=== PATIENT | female | born 1985 | race Caucasian/White ===

== ENCOUNTER 2020-07-27 10:58 | Outpatient (RCR) | payer OTHER, SELFPAY ==
[2020-07-27 12:34] LABS: Hematocrit 36.6 % (37.0-47.0); Hemoglobin 12.4 g/dL (12.0-15.0)
[2020-07-27 12:47] LABS: Glucose 1 Hour PP 50gm Dose 91 mg/dL
[2020-07-27 13:28] LABS: HIV 1/2 Ab P24 Ag Result Negative (Negative)
[2020-07-30 08:22] LABS: Rapid Plasma Reagin Non-Reactive (NonReactive)
[2020-07-30] MEDS: RHO(D) IMMUNE GLOBULIN 300 MCG SYRINGE IM (10:06)
== END 2020-10-25 23:59 | disposition home or self-care (01) ==
LOC: ANHLAB 10:58
PROVIDERS: Visit Provider Obstetrics & Gynecology
DX: Z29.13 Encounter for prophylactic Rho(D) immune globulin (principal); Z11.4 Encounter for screening for human immunodeficiency virus [HIV]; O36.0130 Maternal care for anti-D [Rh] antibodies, third trimester, not applicable or unspecified; Z3A.00 Weeks of gestation of pregnancy not specified
CPT/HCPCS: 36415; 82947; 85014; 85018; 85461; 86592; 86703; 90384; 96372; G0432; J2790

== ENCOUNTER 2020-08-20 14:34 | Outpatient (CLI) | payer OTHER, SELFPAY ==
[2020-08-20 15:18] VITALS: BP 121/80; PULSE 92
--- NOTE | 2020-08-20 15:28 | PC.NURSE ---
Tatyana Luna notified of negative Nitrazine and negative ferning. Ok to dc home. Dr Brooks will read US tomorrow and call with further instructions.
== END 2020-08-20 15:20 | disposition home or self-care (01) ==
LOC: ANHOBOP 14:41 → ANHOBPP 15:28
PROVIDERS: Visit Provider Obstetrics & Gynecology
DX: O41.8X90 Other specified disorders of amniotic fluid and membranes, unspecified trimester, not applicable or unspecified (principal); Z3A.00 Weeks of gestation of pregnancy not specified
CPT/HCPCS: 59025; 99199

== ENCOUNTER 2020-08-31 10:10 | Observation (INO) | payer OTHER, SELFPAY ==
[2020-08-31] VITALS (9 sets, daily range): BP systolic 106–134; BP diastolic 56–75; PULSE 88–99; TEMP 37.4; BMI 25.7
[2020-08-31] MEDS: LACTATED RINGERS 1,000 ML 100 ML IV CONT (11:24)
[2020-08-31] MEDS: BETAMETHASONE SOD PHOS/ACETATE 30 MG/5 ML VIAL 12 MG IM (11:25)
[2020-08-31] MEDS: AMPICILLIN 2 GM/NS 100 ML 2 GM/100 ML BAG IVPB (11:25)
--- NOTE | 2020-08-31 11:41 | PM.IMHP ---
H&P: HPI History of Present Illness Date/Time: 08/31/20 11:41 this patient is a 34-year-old 4 para 3003 at 33 weeks gestation who presents for ruptured membranes. Her final JARRETT is October 17, 2020. This date is based on a certain last menstrual period and supported by a 9 week ultrasound. She denies any contractions. She reports good movement. She denies any nausea, vomiting, fever, chills. She denies any chest pain or shortness of breath. Chief complaint: Leaking FLuid Narrative: Coleen Muhammad is a 34 year old female Review of Systems Constitutional: Constitutional: Reports no additional constitutional complaints, Denies fatigue, Denies headache(s), Denies lethargy and Denies weakness Eyes: Eyes: Reports no additional eye complaints, Denies blurry vision and Denies photophobia ENT: Reports as per HPI, Denies headache(s) and Denies neck pain Cardiovascular: Cardiovascular: Denies chest pain, Denies diaphoresis, Denies leg edema, Denies palpitations and Denies dyspnea Respiratory: Respiratory: Denies hemoptysis, Denies dyspnea and Denies wheezing Gastrointestinal: Gastrointestinal: Denies abdominal pain, Denies melena, Denies bloating, Denies hematochezia, Denies nausea and Denies vomiting Genitourinary: Genitourinary: Reports no additional female genitourinary complaints Musculoskeletal: Musculoskeletal: Denies joint swelling, Denies neck pain, Denies numbness and Denies stiffness Neurologic: Denies Abnormal speech present, Denies confusion, Denies headache(s), Denies numbness and Denies weakness Psychiatric: Psychiatric: Denies anxiety, Denies confusion, Denies depression, Denies homicidal ideation and Denies suicidal ideation Endocrine: Endocrine: Denies fatigue and Denies palpitations Allergic/Immunologic: Allergic/Immunologic: Denies wheezing Meds Home Medications and Allergies Home Medications Medication Instructions Recorded Confirmed Type PNV cmb#95-ferrous fumarate-FA 1 tablet PO DAILY 08/31/20 08/31/20 History [] albuterol 2 INHALATION 08/31/20 History dupilumab [Dupixent Syringe] See Rx Instructions .ROUTE .COMPLEX 08/31/20 08/31/20 History Allergies Allergy/AdvReac Type Severity Reaction Status Date / Time pollen extracts Allergy Mild Verified 03/20/11 17:43 Animal Dander Allergy Mild Uncoded 03/20/11 17:43 Vital Signs Vital Signs - 24 hr 08/31/20 11:14 08/31/20 11:15 Pulse Rate 92 88 Blood Pressure 124/70 121/70 Exam Const: General: healthy appearing, comfortable and no acute distress; No confusion Orientation/consciousness: No confusion Eyes: Direct Ophthalmoscopy: No photophobia Resp: Auscultation: clear to auscultation bilaterally, no rales, no rhonchi and no wheezes Cardio: Rate: regular rate Heart sounds: no click, no murmurs and no rubs GI: Inspection: non-distended GI Palp: No abdominal tenderness Auscultation: normal bowel sounds Neuro: General: No confusion Speech: No Abnormal speech present Extrem: General: normal to inspection, no pedal edema and no calf tenderness Assessment and Plan Assessment and plan (1) premature rupture of membranes: Code(s): O42.919 - premature rupture of membranes, unspecified as to length of time between rupture and onset of labor, unspecified trimester Status: Acute Assessment and Plan: This patient is a 34-year-old 4 para 3003 at 33 weeks and 2 days gestation with premature rupture of membranes. She has received Celestone, azithromycin, and ampicillin. She is stable. She has 3 vaginal births at term. The is vertex. There are no contractions. There is reassuring heart tones. She will be transferred to [facility] in the care of Dr. Bergeron.
[2020-08-31] MEDS: AZITHROMYCIN 250 MG TABLET 1000 MG PO (12:25)
== END 2020-08-31 13:20 | disposition short-term general hospital (02) ==
PROVIDERS: Admitting Provider Obstetrics & Gynecology; Visit Provider Obstetrics & Gynecology
DX: O42.913 Preterm premature rupture of membranes, unspecified as to length of time between rupture and onset of labor, third trimester (principal); Z3A.33 33 weeks gestation of pregnancy
CPT/HCPCS: 96365; 96372; A9270; G0378; G0379; J0290; J0702; J7120

== ENCOUNTER 2022-09-25 11:13 | Outpatient (RCR) | payer OTHER, SELFPAY ==
[2022-09-25] MEDS: RHO(D) IMMUNE GLOBULIN 300 MCG/2 ML SYRINGE IM (13:03)
== END 2022-12-24 23:59 | disposition home or self-care (01) ==
LOC: ANHLAB 11:13
PROVIDERS: Visit Provider Advanced Practice Midwife
DX: Z29.13 Encounter for prophylactic Rho(D) immune globulin (principal); O36.0130 Maternal care for anti-D [Rh] antibodies, third trimester, not applicable or unspecified; Z3A.00 Weeks of gestation of pregnancy not specified
CPT/HCPCS: 36415; 85461; 86850; 86900; 86901; 90384; 96372; J2790

== ENCOUNTER 2022-12-18 09:05 | Outpatient (CLI) | payer OTHER, SELFPAY ==
[2022-12-18 09:51] VITALS: BP 107/71; PULSE 86
== END 2022-12-18 10:05 | disposition home or self-care (01) ==
LOC: ANHOBOP 09:11 → ANHOBPP 09:12
PROVIDERS: Visit Provider Obstetrics & Gynecology
DX: O41.8X90 Other specified disorders of amniotic fluid and membranes, unspecified trimester, not applicable or unspecified (principal)
CPT/HCPCS: 84112; 99199

== ENCOUNTER 2023-02-18 10:53 | Outpatient (CLI) | payer OTHER, SELFPAY ==
[2023-02-18] MEDS: RHO(D) IMMUNE GLOBULIN 300 MCG/2 ML SYRINGE IM (17:18)
== END 2023-02-18 10:54 | disposition home or self-care (01) ==
PROVIDERS: Visit Provider Advanced Practice Midwife
DX: Z36.89 Encounter for other specified antenatal screening (principal); O36.0130 Maternal care for anti-D [Rh] antibodies, third trimester, not applicable or unspecified; Z3A.00 Weeks of gestation of pregnancy not specified
CPT/HCPCS: 36415; 85461; 86850; 86900; 86901; 90384; 96372; J2790